=== PATIENT | female | born 1980 | race Caucasian/White ===

== ENCOUNTER → 2021-11-24 12:24 | Outpatient (CLI) | payer OTHER, SELFPAY ==
--- NOTE | 2021-11-24 | DI.MG.S_ITS ---
BILATERAL DIGITAL DIAGNOSTIC MAMMOGRAM 3D/2D: 11/24/2021 CLINICAL: Breast pain. Comparison is made to exams dated: 08/08/2019 mammogram and 04/21/2018 mammogram - outside location. The tissue of both breasts is heterogeneously dense. This may lower the sensitivity of mammography. There are new grouped heterogeneous calcifications in the left breast at 2 o'clock posterior depth. No other significant masses, calcifications, or other findings are seen in either breast. IMPRESSION: INCOMPLETE: NEEDS ADDITIONAL IMAGING EVALUATION The new heterogeneous calcifications in the left breast are at a moderate suspicion for malignancy. A stereotactic biopsy is recommended. This was discussed with the patient by Dr. Caldera at the time of the study. There is no mammographic abnormality seen in the left breast to correspond with the pain, however, ultrasound is recommended. This will be scheduled as soon as possible. This exam was interpreted at Station ID: [id number]. NOTE: For mammograms, a report in lay terms will be sent to the patient. Approximately 15% of breast malignancies will not be visualized mammographically. In the management of a palpable breast mass, a negative mammogram must not discourage biopsy of a clinically suspicious lesion. Electronically Signed By: Kaylynn rudolph/:11/30/2021 14:51:54 Entry: - 11/30/2021 15:06:22 letter sent: Biopsy Required ACR BI-RADS Category 0: Incomplete [id number]
== END ==
PROVIDERS: PCP Physician Assistant Medical; Referring Provider Physician Assistant Medical; Visit Provider Physician Assistant Medical
DX: N64.4 Mastodynia (principal); R92.1 Mammographic calcification found on diagnostic imaging of breast
CPT/HCPCS: 77066; G0279

== ENCOUNTER → 2021-12-01 12:28 | Outpatient (CLI) | payer OTHER, SELFPAY ==
--- NOTE | 2021-12-01 | DI.US.S_ITS ---
LIMITED ULTRASOUND OF LEFT BREAST AND AXILLA: 12/01/2021 CLINICAL: Diffuse left breast pain. Comparison is made to exams dated: 11/24/2021 mammogram - [facility], 08/08/2019 mammogram, 04/26/2018 ultrasound, 04/21/2018 ultrasound, and 04/21/2018 mammogram - outside location. Color flow and real-time ultrasound of the left breast 8-12 o'clock, and axilla regions were performed. Chavez scale images of the real-time examination were reviewed. There is a 1.5 cm oval mass with a circumscribed margin in the left breast at 8 o'clock middle depth 3 cm from the nipple. This oval mass is hypoechoic with a well-defined boundary. Color flow imaging demonstrates that there is vascularity present. There also is a 0.6 cm oval cyst in the left breast at 9 o'clock middle depth 4 cm from the nipple. This oval cyst displays posterior acoustic enhancement. Color flow imaging demonstrates that there is no vascularity present. Additionally, there is a 1 cm wider than tall oval mass with a circumscribed margin in the left breast at 10 o'clock middle depth 4 cm from the nipple. This oval mass is hypoechoic. Color flow imaging demonstrates that there is no vascularity present. In addition, there is a 0.9 cm oval mass with a circumscribed margin in the left breast at 11 o'clock middle depth 2 cm from the nipple. This oval mass is hypoechoic. Color flow imaging demonstrates that there is no vascularity present. No significant abnormalities were seen sonographically in the left axilla. IMPRESSION: SUSPICIOUS OF MALIGNANCY The 1.5 cm oval mass in the left breast at 8 o'clock middle depth most likely is a fibroadenoma and is probably benign. The 0.6 cm oval cyst in the left breast at 9 o'clock middle depth is consistent with a complicated cyst and is probably benign. The 1 cm wider than tall oval mass in the left breast at 10 o'clock middle depth most likely is a fibroadenoma and is probably benign. The 0.9 cm oval mass in the left breast at 11 o'clock middle depth most likely is a fibroadenoma and is probably benign. A follow-up left ultrasound in 6 months is recommended to demonstrate stability of these findings. Stereotactic biopsy is recommended for left breast calcifications seen on mammogram. Findings and recommendations were conveyed to the patient at time of exam. This exam was interpreted at Station ID: [id number]. Electronically Signed By: Talisha sheikh/:12/01/2021 14:03:55 letter sent: Biopsy Required Ultrasound BI-RADS: 4 Suspicious for malignancy
== END ==
PROVIDERS: PCP Physician Assistant Medical; Referring Provider Physician Assistant Medical; Visit Provider Physician Assistant Medical
DX: N63.24 Unspecified lump in the left breast, lower inner quadrant (principal); R92.8 Other abnormal and inconclusive findings on diagnostic imaging of breast; N63.22 Unspecified lump in the left breast, upper inner quadrant; N60.02 Solitary cyst of left breast; N64.4 Mastodynia
CPT/HCPCS: 76642